=== PATIENT | female | born 1945 | race Two or more races ===

== ENCOUNTER 2024-04-27 14:03 | Inpatient (IN) | payer OTHER ==
[2024-04-27 15:46] LABS: BASO % 0.5 % (0-2.0); EOS % 0.9 % (0-4.5); HEMOGLOBIN 10.4 GM/dL (10.7-15.3); LYMPH % 39.5 % (8-40); MCH 27.4 pg (25.7-33.7); MCHC 31.6 g/dl (32.0-36.0); MEAN CELL VOLUME 86.8 fl (80-96); MEAN PLT VOLUME 9.6 fl (7.5-11.1); MONO % 8.8 % (3.8-10.2); NEUT % 50.3 % (42.8-82.8); PLATELET COUNT 186 10^3/uL (134-434); RDW 13.7 % (11.6-15.6); WHITE BLOOD COUNT 7.4 K/mm3 (4.0-10.0)
[2024-04-27 16:13] LABS: POTASSIUM 4.2 mmol/L (3.5-5.1)
[2024-04-27 16:16] LABS: ALBUMIN 3.3 g/dl (3.4-5.0); BLOOD UREA NITROGEN 95.1 mg/dL (7-18); CALCIUM 8.7 mg/dL (8.5-10.1)
[2024-04-27 16:19] LABS: CREATININE 3.4 mg/dL (0.55-1.3)
[2024-04-27 16:20] LABS: BILIRUBIN,TOTAL 0.3 mg/dL (0.2-1)
[2024-04-27 16:21] LABS: TOT PROT 6.6 g/dl (6.4-8.2)
[2024-04-27] MEDS ORDERED: MAG HYDROX/AL HYDROX/SIMETH 30 ML UNIT-DOSE CUP ONE (16:28)
[2024-04-27] MEDS ORDERED: ONDANSETRON 4 MG/2 ML VIAL ONE (16:28)
[2024-04-27] MEDS ORDERED: ACETAMINOPHEN INJECTION 100 ML ONE (16:28)
[2024-04-27] MEDS ORDERED: FAMOTIDINE 20 MG/50 ML IVPB 20 MG/50 ML MG IVPB ONE (16:29)
[2024-04-27] MEDS: FAMOTIDINE 20 MG/50 ML IVPB 20 MG/50 ML MG IVPB ONE (16:39)
[2024-04-27] MEDS: MAG HYDROX/AL HYDROX/SIMETH 30 ML UNIT-DOSE CUP PO ONE (16:39)
[2024-04-27] MEDS: ACETAMINOPHEN 1000 MG/100 ML BAG IVPB ONE (16:39)
[2024-04-27] MEDS: ONDANSETRON 4 MG/2 ML VIAL IVPUSH ONE (16:39)
[2024-04-27] MEDS: SODIUM CHLORIDE 0.9% 1000 ML INFUS.BAG IV ONE (16:39)
[2024-04-27] MEDS: SODIUM CHLORIDE 1,000 ML IV STA (20:25)
[2024-04-27] MEDS: HEPARIN NA (PORCINE) 5,000 UNITS/ML 1ML VIAL SQ SCH (21:46)
[2024-04-27] MEDS: SODIUM CHLORIDE 1,000 ML IV SCH (21:50)
[2024-04-28] MEDS: LEVOTHYROXINE NA 100 MCG TABLET (FP) PO SCH (06:30)
[2024-04-28 08:06] LABS: HEMATOCRIT 31.7 % (32.4-45.2); HEMOGLOBIN 9.9 GM/dL (10.7-15.3); MCH 27.6 pg (25.7-33.7); MCHC 31.2 g/dl (32.0-36.0); MEAN CELL VOLUME 88.5 fl (80-96); MEAN PLT VOLUME 10.7 fl (7.5-11.1); PLATELET COUNT 160 10^3/uL (134-434); RBC 3.58 M/mm3 (3.60-5.2); RDW 13.6 % (11.6-15.6); WHITE BLOOD COUNT 6.2 K/mm3 (4.0-10.0)
[2024-04-28 08:29] LABS: CALCIUM 8.5 mg/dL (8.5-10.1)
[2024-04-28 08:30] LABS: MAGNESIUM 2.4 mg/dL (1.8-2.4)
[2024-04-28 08:33] LABS: PHOSPHOROUS 5.4 mg/dL (2.5-4.9)
[2024-04-28 08:35] LABS: CREATININE 2.9 mg/dL (0.55-1.3)
[2024-04-28 10:03] LABS: HIV INTERPRETATION NEGATIVE (NEGATIVE)
[2024-04-28 10:49] LABS: URINE APPEARANCE CLEAR; URINE BILIRUBIN NEGATIVE (NEGATIVE); URINE COLOR YELLOW; URINE GLUCOSE (UA) 2+ (NEGATIVE); URINE KETONE NEGATIVE (NEGATIVE); URINE LEUK ESTERASE NEGATIVE (NEGATIVE); URINE NITRITE NEGATIVE (NEGATIVE); URINE PROTEIN TRACE (NEGATIVE); URINE UROBILINOGEN 0.2 mg/dL (0.2-1.0)
[2024-04-28] MEDS: ACETAMINOPHEN 325 MG TABLET (FP) PO PRN (11:30)
[2024-04-28 15:43] VITALS: BMI 38.0
[2024-04-28] MEDS: HEPARIN NA (PORCINE) 5,000 UNITS/ML 1ML VIAL SQ SCH (21:37)
[2024-04-29 07:35] LABS: HEMATOCRIT 31.6 % (32.4-45.2); HEMOGLOBIN 9.9 GM/dL (10.7-15.3); MCH 27.4 pg (25.7-33.7); MCHC 31.5 g/dl (32.0-36.0); MEAN CELL VOLUME 87.2 fl (80-96); PLATELET COUNT 165 10^3/uL (134-434); RBC 3.62 M/mm3 (3.60-5.2); RDW 12.9 % (11.6-15.6); WHITE BLOOD COUNT 4.5 K/mm3 (4.0-10.0)
[2024-04-29 08:28] LABS: POTASSIUM 4.2 mmol/L (3.5-5.1)
[2024-04-29 08:30] LABS: BLOOD UREA NITROGEN 72.8 mg/dL (7-18); CALCIUM 8.2 mg/dL (8.5-10.1)
[2024-04-29 08:33] LABS: CREATININE 2.4 mg/dL (0.55-1.3)
[2024-04-29 08:35] LABS: BILIRUBIN,TOTAL 0.2 mg/dL (0.2-1); TOT PROT 5.8 g/dl (6.4-8.2)
[2024-04-29 08:55] VITALS: RESP 18
[2024-04-29] MEDS: INSULIN ASPART SLIDING SCALE (NOVOLOG) 1 VIAL SQ SCH ×2 (10:26→16:44)
[2024-04-29] MEDS ORDERED: ACETAMINOPHEN 325 MG TABLET (FP) PO PRN (14:15)
[2024-04-29] MEDS ORDERED: INSULIN ASPART SLIDING SCALE (NOVOLOG) 1 VIAL SQ SCH (16:30)
[2024-04-29] MEDS: HEPARIN NA (PORCINE) 5,000 UNITS/ML 1ML VIAL SQ SCH (21:06)
[2024-04-30] MEDS: LEVOTHYROXINE NA 100 MCG TABLET (FP) PO SCH (06:38)
[2024-04-30 08:32] LABS: HEMATOCRIT 31.3 % (32.4-45.2); HEMOGLOBIN 10.2 GM/dL (10.7-15.3); MCH 27.9 pg (25.7-33.7); MCHC 32.6 g/dl (32.0-36.0); MEAN CELL VOLUME 85.5 fl (80-96); MEAN PLT VOLUME 10.7 fl (7.5-11.1); PLATELET COUNT 175 10^3/uL (134-434); RBC 3.66 M/mm3 (3.60-5.2); RDW 13.3 % (11.6-15.6); WHITE BLOOD COUNT 4.8 K/mm3 (4.0-10.0)
[2024-04-30 08:40] LABS: POTASSIUM 4.1 mmol/L (3.5-5.1)
[2024-04-30 08:51] LABS: ALBUMIN 3.3 g/dl (3.4-5.0); BLOOD UREA NITROGEN 57.4 mg/dL (7-18); CALCIUM 8.6 mg/dL (8.5-10.1)
[2024-04-30 08:54] LABS: CREATININE 2.1 mg/dL (0.55-1.3)
[2024-04-30 08:55] LABS: BILIRUBIN,TOTAL 0.6 mg/dL (0.2-1); TOT PROT 6.4 g/dl (6.4-8.2)
[2024-04-30 19:17] VITALS: BP 126/90; PULSE 69; TEMP 97.5
[2024-04-30 20:06] LABS: GLIADIN ANTIBODY IGA 5 units (0-19); GLIADIN ANTIBODY IGG 2 units (0-19); TRANSGLUTAMINASE IGG 5 U/mL (0-5)
[2024-05-04 14:10] LABS: FATS, NEUTRAL Normal (.)
== END 2024-04-30 19:30 | disposition home health service (06) | DRG 684 ==
LOC: JER 14:03 → JERBED 19:53 → OBSVTOIN 19:53 → J4W 21:11 → J7W 04-29 13:53
PROVIDERS: ADMIT Internal Medicine; ATTEND Physician Assistant
DX: N17.9 Acute kidney failure, unspecified (principal); R11.2 Nausea with vomiting, unspecified; R19.7 Diarrhea, unspecified; E78.5 Hyperlipidemia, unspecified; E11.9 Type 2 diabetes mellitus without complications; I10 Essential (primary) hypertension; E03.9 Hypothyroidism, unspecified; E86.0 Dehydration; E66.9 Obesity, unspecified; Z68.38 Body mass index [BMI] 38.0-38.9, adult; F17.200 Nicotine dependence, unspecified, uncomplicated; N28.1 Cyst of kidney, acquired
CPT/HCPCS: 0241U-QW; 36415; 71045-TC-FY; 76705-TC; 76775-TC; 80048; 80053; 81003; 82438; 82570; 82705; 82784; 82943; 82962; 83036; 83516; 83690; 83735; 83935; 84100; 84260; 84300; 84302; 84439; 84443; 84484; 84540; 84999; 85025; 85027; 87045; 87046; 87086; 87209; 87324; 87389; 87425; 87449; 87798; 93005; 93010; 97116-GP; 97162-GP; 99285-25; J0131; J1644